=== PATIENT | female | born 1975 | race Two or more races ===

== ENCOUNTER 2016-07-06 02:30 | Emergency (ER) | payer OTHER ==
[~2016-07-06] VITALS: Ht 160 cm; Wt 74.4 kg
[~2016-07-06 02:30] MED LIST: ALBUTEROL SULF8.5 GM IH; ANTIVERT25 MG PO; LEXAPRO20 MG PO; MUCUS RELIEF600 M1 PO; OXYCODONE HCL5 MG PO; PREDNISONE10 MG PO; PREDNISONE20 MG PO; PROAIR HFA8.5 GM IH; SYMBICORT60 INHALAT IH; VENTOLIN HFA18 GM IH; ZANTAC150 MG PO
[2016-07-06 02:56] LABS: CHLORIDE 103 mEq/L (99-109); POTASSIUM 3.8 mEq/L (3.7-5.4); SODIUM 136 mEq/L (136-147)
[2016-07-06 02:57] LABS: GLUCOSE 141 mg/dL (70-99)
[2016-07-06 02:59] LABS: ANION GAP 8 MEQ/L (2-14)
[2016-07-06 03:00] LABS: HEMATOCRIT 36.9 % (36.0-46.0); MCH 28.2 PG (29.0-34.0); MCHC 33.6 G/DL (30.0-36.0); MCV 84.1 FL (83-99); MEAN PLAT.VOLUME 13.9 uM^3 (9.5-12.4); PLATELET COUNT 195 K/uL (156-360); RBC DIS.WIDTH-CV 14.3 % (11.8-14.6); RBC DIS.WIDTH-SD 43.9 % (39-53); RED BLOOD COUNT 4.39 M/uL (3.80-5.20)
[2016-07-06 03:01] LABS: GFR ESTIMATE (CALCULATED) > 59 mL/min/
[2016-07-06 03:02] LABS: UREA NITROGEN (BUN) 7 mg/dL (9-23)
[2016-07-06 03:33] LABS: INFLUENZA A VIRAL ANTIGEN POSITIVE; INFLUENZA B VIRAL ANTIGEN NEGATIVE
[2016-07-06] MEDS ORDERED: TAMIFLU75 MG PO (06:30)
[2016-07-06] MEDS ORDERED: MEDROL DOSEPAK4 MG PO (06:30)
[2016-07-06 07:08] VITALS: BP 126/77
== END 2016-07-06 07:09 | disposition home or self-care (01) ==
LOC: EME 02:30
DX: J10.1 Influenza due to other identified influenza virus with other respiratory manifestations (principal); J44.1 Chronic obstructive pulmonary disease with (acute) exacerbation; M79.1 Myalgia; F17.200 Nicotine dependence, unspecified, uncomplicated
CPT/HCPCS: 71020; 80048; 85027; 87502; 93005; 94640; 99281; 99284; J7512